=== PATIENT | male | born 1980 | race African-American/Black ===

== ENCOUNTER 2020-06-05 17:45 | Inpatient (IN) | payer BC, OTHER ==
[2020-06-05] MEDS ORDERED: HEPARIN SODIUM,PORCINE 5,000 UNIT/ML 1 ML VIAL IV STA (18:02)
[2020-06-05] MEDS ORDERED: ASPIRIN 81 MG PO STA (18:02)
[2020-06-05] MEDS ORDERED: ATORVASTATIN 80 MG TAB PO STA (18:03)
[2020-06-05] MEDS ORDERED: NALOXONE 0.4 MG/ML 1 ML VIAL IV PRN (18:04)
--- NOTE | 2020-06-05 18:06 | ED ---
General Adult HPI - General Chief complaint: Chest Pain Stated complaint: Chest Pain Time Seen by Provider: 06/05/20 17:58 Source: patient, RN notes reviewed, old records reviewed Mode of arrival: wheelchair Limitations: no limitations - History of Present Illness Initial comments: 19-year-old male history of hypertension, current smoker presenting with anterior chest pain radiating to his neck. His been intermittent over the past 2 or 3 days however 20 minutes prior to arrival pain became more severe. Patient has no known history of coronary artery disease. He denies associated vomiting. He is diaphoretic. - Related Data Home Medications Medication Instructions Recorded Confirmed Hydroxycut Weight Loss Supp 1 cap PO DAILY 06/05/20 06/05/20 amLODIPine [Norvasc] 5 mg PO DAILY 06/05/20 06/05/20 Allergies Allergy/AdvReac Type Severity Reaction Status Date / Time No Known Allergies Allergy Verified 06/05/20 18:19 Review of Systems ROS Statement: Those systems with pertinent positive or pertinent negative responses have been documented in the HPI. ROS Other: All systems not noted in ROS Statement are negative. Past Medical History Past Medical History: No Reported History History of Any Multi-Drug Resistant Organisms: None Reported Past Surgical History: No Surgical Hx Reported Past Psychological History: No Psychological Hx Reported Smoking Status: Current every day smoker, Vaper Past Alcohol Use History: Daily Past Drug Use History: Marijuana General Exam Limitations: no limitations General appearance: alert, in distress Head exam: Present: atraumatic, normocephalic Eye exam: Present: normal appearance, PERRL ENT exam: Present: normal exam Neck exam: Present: normal inspection. Absent: tenderness, meningismus Respiratory exam: Present: normal lung sounds bilaterally. Absent: respiratory distress, wheezes Cardiovascular Exam: Present: regular rate, normal rhythm GI/Abdominal exam: Present: soft. Absent: distended, tenderness, guarding Extremities exam: Present: normal inspection, normal capillary refill, other (Distal pulses, 2+ bilateral posterior tibial, 2+ bilateral radial). Absent: pedal edema Neurological exam: Present: alert, oriented X3, CN II-XII intact. Absent: motor sensory deficit Psychiatric exam: Present: normal affect, normal mood Skin exam: Present: warm, dry, intact, diaphoretic Course Vital Signs 06/05/20 06/05/20 17:46 18:17 Temperature 99.0 F Pulse Rate 55 L 67 Respiratory 20 18 Rate Blood Pressure 160/81 170/94 O2 Sat by Pulse 99 100 Oximetry EKG Findings - EKG Comments: EKG Findings:: EKG: Obtained at 1756, sinus rhythm with ST segment elevation in V1, V2 and V3, there is reciprocal ST segment depression inferiorly. With T- wave inversion. Rate of 61, NM interval 136, QRS duration 106, QTC 420. Repeat EKG at 1759, normal sinus rhythm with ST segment elevation in the precordial leads with reciprocal depression inferiorly and T-wave inversion, rate of 78, NM interval 136, QRS duration 102, QTC 469 Medical Decision Making - Medical Decision Making 39-year-old male with intermittent chest pain, which became severe just prior to arrival. EKG is concerning for ST segment elevated NE, with anterior elevation and reciprocal change. finishing lab technician is activated, I discussed case with Dr. Landeros, and Dr. chadwick he will admit. Laboratory testing has been obtained as well as chest x-ray is results are pending. Patient's given aspirin, heparin, Lipitor the emergency department. Taken to the [facility] for urgent heart cath. - Lab Data Result diagrams: 06/05/20 18:02 Lab Results 06/05/20 06/05/20 Range/Units 18:02 18:02 WBC 10.8 H (3.8-10.6) k/uL RBC 5.03 (4.30-5.90) m/uL Hgb 15.8 (13.0-17.5) gm/dL Hct 48.0 (39.0-53.0) % MCV 95.4 (80.0-100.0) fL MCH 31.4 (25.0-35.0) pg MCHC 32.9 (31.0-37.0) g/dL RDW 12.7 (11.5-15.5) % Plt Count 214 (150-450) k/uL Neutrophils % 62 % Lymphocytes % 27 % Monocytes % 5 % Eosinophils % 3 % Basophils % 1 % Neutrophils # 6.7 (1.3-7.7) k/uL Lymphocytes # 3.0 (1.0-4.8) k/uL Monocytes # 0.5 (0-1.0) k/uL Eosinophils # 0.4 (0-0.7) k/uL Basophils # 0.1 (0-0.2) k/uL PT 9.6 (9.0-12.0) sec INR 0.9 (<1.2) APTT 22.4 (22.0-30.0) sec Critical Care Time Critical Care Time: Yes Total Critical Care Time: 31 Disposition Clinical Impression: ST elevation myocardial infarction (STEMI) Disposition: ADMITTED IP TO THIS [facility] Condition: Serious Is patient prescribed a controlled substance at d/c from ED?: No Referrals: Luca Tian DO [Primary Care Provider] - 1-2 days Decision to Admit Reason: Admit from EC Decision Date: 06/05/20 Decision Time: 18:31
[2020-06-05 18:16] LABS: Basophils # (A) 0.1 k/uL (0-0.2); Basophils % (A) 1 %; Eosinophils # (A) 0.4 k/uL (0-0.7); Eosinophils % (A) 3 %; HGB 15.8 gm/dL (13.0-17.5); Lymphocytes % (A) 27 %; MCH 31.4 pg (25.0-35.0); MCHC 32.9 g/dL (31.0-37.0); MCV 95.4 fL (80.0-100.0); Mean Platelet Volume 8.3; Monocytes # (A) 0.5 k/uL (0-1.0); Monocytes % (A) 5 %; Neutrophils # (A) 6.7 k/uL (1.3-7.7); Neutrophils % (A) 62 %; Platelet Count 214 k/uL (150-450); RBC 5.03 m/uL (4.30-5.90); RDW 12.7 % (11.5-15.5); WBC 10.8 k/uL (3.8-10.6)
[2020-06-05 18:27] LABS: INR 0.9 (<1.2); Partial Thromboplastin Time 22.4 sec (22.0-30.0); Prothrombin Time 9.6 sec (9.0-12.0)
[2020-06-05 18:32] LABS: Albumin 3.9 g/dL (3.5-5.0); Calcium 9.1 mg/dL (8.4-10.2); Magnesium 2.3 mg/dL (1.6-2.3); Potassium 4.1 mmol/L (3.5-5.1); Total Bilirubin 0.9 mg/dL (0.2-1.3); Total Protein 6.1 g/dL (6.3-8.2)
[2020-06-05] MEDS ORDERED: LIDOCAINE 1% INJ 10MG/ML (20 ML MDV) ONE (18:41)
[2020-06-05] MEDS ORDERED: fentaNYL (PF) 50 MCG/ML 2 ML AMP ONE (18:41)
[2020-06-05] MEDS ORDERED: VERAPAMIL 2.5 MG/ML 2 ML AMP ONE (18:41)
[2020-06-05] MEDS ORDERED: IV FLUID CONTINUATION 1,000 ML IV ONE (18:43)
[2020-06-05] MEDS ORDERED: fentaNYL (PF) 50 MCG/ML 2 ML AMP IV ONE (18:45)
[2020-06-05] MEDS ORDERED: LIDOCAINE 1% INJ 10MG/ML (20 ML MDV) SQ ONE (18:47)
[2020-06-05] MEDS ORDERED: VERAPAMIL SYRINGE (5 MG/10 ML) INTRAARTER ONE (18:50)
[2020-06-05] MEDS ORDERED: BIVALIRUDIN 250 MG in SODIUM CHLORIDE 0.9% 50 ML IV ONE (18:50)
[2020-06-05] MEDS ORDERED: BIVALIRUDIN BOLUS 250 MG/50 ML IV ONE (18:50)
[2020-06-05 18:51] LABS: Creatine Kinase MB 5.2 ng/mL (0.0-2.4)
[2020-06-05] MEDS ORDERED: PRASUGREL 10 MG TAB ONE ×2 (18:59)
--- NOTE | 2020-06-05 19:00 | P.CRDCN ---
History of Present Illness History of present illness: This is Dr. Landeros dictating a consult on this patient The patient was interviewed and examined IMPRESSION / ASSESSMENT: Midsternal chest discomfort starting 20 minutes prior to arrival severe. No dizziness no nausea no other symptoms Abnormal ST segments with ST elevation in V1 to V3, T-wave inversion inferior leads and V6, asymmetric Recurrent chest discomfort for the last 2 days worse 20 minutes prior to admission History of long-standing hypertension, uncontrolled Noncompliance of medications line current smoker Nondiabetic Elevated CPK, troponins pending ECG very suggestive of left ventricular hypertrophy PLAN: In view of the abnormal ECG and worrisome chest discomfort midsternal, proceed with coronary angiography. Discussed with the patient's . Discussed Dr. Jr flores Lipid panel Hypertension management Low salt diet Smoking cessation HPI Patient has been experiencing recurrent chest discomfort for the last 2 days. He did not tell his anything but 20 minutes prior to arrival he started having severe midsternal chest discomfort once again, nonradiating. The pain was so severe that he came to the hospital. No other associated symptoms No dizziness lightheadedness no loss of consciousness He does have hypertension but he's been taking his 's medications reviewed he is fairly noncompliant with her medications He does smoke He is a nondiabetic ROS: No fever chills or rigors, no cough, phlegm or expectoration, no nausea, vomiting or diarrhea, no hematuria, dysuria, no musculoskeletal complaints, no strokes or seizures, no skin lesions. EXAMINATION: Heart rate in the 1560s, temperature 90.9F, blood pressure 160-170 mmHg systolic and diastolics between 80-90 mmHg REVIEW OF LABS, ECG & MEDICAL DATA White count 10.8, hemoglobin 15.8 Sodium 137 potassium 4.1 BUN 12 creatinine 1.38 CPK 466 Past Medical History Past Medical History: No Reported History History of Any Multi-Drug Resistant Organisms: None Reported Past Surgical History: No Surgical Hx Reported Past Psychological History: No Psychological Hx Reported Smoking Status: Current every day smoker, Vaper Past Alcohol Use History: Daily Past Drug Use History: Marijuana Medications and Allergies Home Medications Medication Instructions Recorded Confirmed Type Hydroxycut Weight Loss Supp 1 cap PO DAILY 06/05/20 06/05/20 History amLODIPine [Norvasc] 5 mg PO DAILY 06/05/20 06/05/20 History Allergies Allergy/AdvReac Type Severity Reaction Status Date / Time No Known Allergies Allergy Verified 06/05/20 18:19 Physical Exam Vitals: Vital Signs Temp Pulse Resp BP Pulse Ox 06/05/20 18:17 67 18 170/94 100 06/05/20 17:46 99.0 F 55 L 20 160/81 99 Intake and Output 06/05/20 06/05/20 06/05/20 06:59 14:59 22:59 Other: Weight 102.058 kg Results 06/05/20 18:02 06/05/20 18:02 Cardiac Enzymes 06/05/20 Range/Units 18:02 AST 37 (17-59) U/L Coagulation 06/05/20 Range/Units 18:02 PT 9.6 (9.0-12.0) sec APTT 22.4 (22.0-30.0) sec CBC 06/05/20 Range/Units 18:02 WBC 10.8 H (3.8-10.6) k/uL RBC 5.03 (4.30-5.90) m/uL Hgb 15.8 (13.0-17.5) gm/dL Hct 48.0 (39.0-53.0) % Plt Count 214 (150-450) k/uL Comprehensive Metabolic Panel 06/05/20 Range/Units 18:02 Sodium 137 (137-145) mmol/L Potassium 4.1 (3.5-5.1) mmol/L Chloride 106 (98-107) mmol/L Carbon Dioxide 26 (22-30) mmol/L BUN 12 (9-20) mg/dL Creatinine 1.38 H (0.66-1.25) mg/dL Glucose 92 (74-99) mg/dL Calcium 9.1 (8.4-10.2) mg/dL AST 37 (17-59) U/L ALT 29 (4-49) U/L Alkaline Phosphatase 52 (38-126) U/L Total Protein 6.1 L (6.3-8.2) g/dL Albumin 3.9 (3.5-5.0) g/dL Current Medications Generic Name Dose Route Start Last Admin Trade Name Freq PRN Reason Stop Dose Admin Naloxone HCl 0.2 mg 06/05/20 18:04 Narcan IV Q2M PRN Opioid Reversal Intake and Output 06/05/20 06/05/20 06/05/20 06:59 14:59 22:59 Other: Weight 102.058 kg Patient Weight 06/06/20 06:59 Weight 102.058 kg 06/05/20 18:02 06/05/20 18:02
[2020-06-05 19:02] LABS: Troponin I 0.377 ng/mL (0.000-0.034)
[2020-06-05] MEDS ORDERED: PRASUGREL 10 MG TAB PO ONE (19:03)
[2020-06-05] MEDS ORDERED: NITROGLYCERIN 1000MCG/10ML SYRINGE INTRACORON ONE ×2 (19:03→19:14)
[2020-06-05] MEDS ORDERED: IOPAMIDOL-370 100ML BTL INJ ONE ×2 (19:05→19:22)
--- NOTE | 2020-06-05 19:08 | XR ---
EXAMINATION: XR chest 1V portable DATE AND TIME: 06/05/2020 6:09 PM CLINICAL INDICATION: PHH; chest pain, STEMI TECHNIQUE: AP upright portable COMPARISON: None FINDINGS: The lungs are clear. The pleural spaces are negative. The cardiac silhouette is not enlarged. The remainder of the mediastinal silhouette is unremarkable. The skeletal structures and soft tissues are negative for acute findings. IMPRESSION: NO ACUTE PROCESS.
[2020-06-05] MEDS ORDERED: RX INFO: IV CONTRAST WAS GIVEN 1 EACH MISC MISCELLANE PRN (19:40)
[2020-06-05] MEDS ORDERED: ZOLPIDEM 5 MG TAB PO PRN (19:40)
[2020-06-05] MEDS ORDERED: MAG HYDROX/AL HYDROX/SIMETH 30 ML CUP PO PRN (19:40)
[2020-06-05] MEDS ORDERED: ATROPINE SULFATE 0.1 MG/ML 10ML SYRINGE IV PRN (19:40)
[2020-06-05] MEDS ORDERED: NITROGLYCERIN SL TABS 0.4 MG TAB SUBLINGUAL PRN (19:40)
[2020-06-05] MEDS ORDERED: SODIUM CHLORIDE 0.9% 1,000 ML IV SCH (19:45)
[2020-06-05 20:01] LABS: Glucose,Whole Blood 93 mg/dL (75-99)
[2020-06-05] MEDS: ATORVASTATIN 80 MG TAB PO SCH (21:10)
[2020-06-05] MEDS: METOPROLOL TARTRATE 25 MG TAB PO SCH (21:10)
[2020-06-05] MEDS: lisinopriL 5 MG TAB PO SCH (21:11)
--- NOTE | 2020-06-05 21:50 | CC ---
CARDIAC CATHETERIZATION REPORT Mr. Lundy is a 39-year-old male with known history of chronic tobacco use and hypertension who presented with symptoms of chest discomfort on and off for the last 2 days. He was evaluated by Dr. Landeros. His EKG showed evidence of left ventricular hypertrophy as well as ST-segment elevation anteriorly. In view of that, recommendation made regarding cardiac catheterization. The procedures, risks, and complications were discussed with the patient who is in full understanding and agreement. PROCEDURE DETAILS: Patient was brought to [facility] in a fasting state after receiving fentanyl and Benadryl and achieving moderate conscious sedated state. Using Xylocaine anesthesia and Seldinger technique, a 6-Azerbaijani sheath was introduced in the right radial artery. Selective right and left coronary angiography performed using 5-Azerbaijani 3 and half bend right Micki and 6-[place]zerbaij[place] FL 3.5 guiding catheter. Images of the coronary arteries including hemiaxial views were obtained. Subsequently angioplasty and stenting was performed. Following that, the left guide catheter was used to cross the aortic valve and pressures were calculated. Following that, catheter and sheath were removed. Hemostasis was obtained with deployment of a TR band. There was no immediate complication. Patient is returned to his room in stable condition. Of note, the patient had received intra-arterial verapamil. There was no immediate complication. FINDINGS: LEFT MAIN: This is a short size vessel bifurcating into left circumflex, left anterior descending coronary artery, left main coronary artery has no evidence of high-grade stenosis. LEFT ANTERIOR DESCENDING ARTERY: This is a large-sized vessel reaching toward the apex with a wraparound apex segment giving rise to a 1 diagonal branch of moderate caliber. The diagonal branch has a 40% to 50% plaque. The rest of the vessel has no high-grade stenosis. LEFT CIRCUMFLEX: This is a nondominant vessel, large in caliber, giving rise to 3 obtuse marginal branch the left circumflex proximally prior to the takeoff of the first obtuse marginal branch has a 90 of 95% stenosis. The rest of the vessel has no high- grade stenosis. RIGHT CORONARY ARTERY: This is a large dominant vessel bifurcating distally PDA and posterolateral segment and branches. The right coronary artery as well as branches have no evidence of obstructive disease. LEFT VENTRICULOGRAM: Left ventriculogram was not performed. HEMODYNAMICS: There was no gradient across the aortic valve. The left ventricle end-diastolic pressure is 12-14 mmHg. CONCLUSION: 1. Critical stenosis in the proximal left circumflex. 2. Mild to moderate disease in the 1st diagonal branch. RECOMMENDATIONS: In view of finding anatomy, I recommend to proceed with angioplasty and stenting of the left anterior descending artery. The procedures, risks, and complications were discussed with the patient who is in full understanding and agreement. MMEMILYL / RUBENN: [id number] /
--- NOTE | 2020-06-05 22:05 | LTR ---
DATE OF SERVICE: 06/05/[address] Tian: I had the pleasure of performing cardiac catheterization, coronary angioplasty and stenting on Mr. Lundy at [facility] on June 05 and a full copy of procedure note will be forwarded to you. In brief, he was found to have critical stenosis involving the proximal left circumflex and underwent successful stenting of that vessel. I am hopeful that this procedure will stabilize his status and I would recommend continuing dual antiplatelet treatments without any interruption for at least 1 year. Thank you again for allowing me to participate in his care. Please feel free to call for any questions. Sincerely yours, MMODL / IJN: [id number] /
--- NOTE | 2020-06-05 22:05 | CC ---
CARDIAC CATHETERIZATION REPORT Mr. Lundy is a 39-year-old male with a history of hypertension and chronic tobacco use, who presented with symptoms of chest discomfort and EKG changes. He underwent cardiac catheterization was found to have a critical stenosis involving the proximal left circumflex. In view of that, recommendation made regarding angioplasty and stenting. The procedures, risks, and complication were discussed with the patient who is in full understanding and agreement. PROCEDURE DETAILS: Using the 6-[place] FL 3.5 guiding catheter a 0.014 balanced medium weight J-wire was advanced across the lesion positioned distal left circumflex. Following that, a 2.5 x 12 mm Trek balloon was advanced and one inflation at 8 atmospheres was done. Following that, the balloon was removed and a 3.5 x 18 mm Xience Jessica stent was deployed, it was dilated at 16 atmospheres. After that, the balloon was removed and the wire was reintroduced in the first obtuse marginal branch and a 2.5 x 12 mm Trek balloon was advanced and one inflation at 8 atmospheres was done. Following that, the balloon was removed and the wire was reintroduced in the distal left circumflex and a 4.0 x 8 mm NC Trek balloon was advanced and two inflations at a maximum of 12 atmospheres was done. After the last inflation, after appropriate wait, the balloon and the guide wire withdrawn back in the guiding catheter. Images were obtained and repeated. Those images reveal stable successful stenting. Following that, left ventricular end- diastolic pressure was calculated. Following that, catheter and sheath were removed. Hemostasis was obtained with deployment of a TR band. There was no immediate complication. Patient is returned to his room in stable condition. Of note, the patient received Angiomax per protocol as well as oral loading dose of Effient. He had chest discomfort and mild EKG changes with the inflation that resolved at the end of the procedure. RESULTS: Successful stenting of the proximal left circumflex with reduction of stenosis from 95% to 0%. RECOMMENDATIONS: Patient will be continued on aspirin, Effient, beta billy, BENNY inhibitor, statin. The importance of dual antiplatelet treatment were discussed with the patient and his family and they are in full understanding and agreement. Duration of sedation is 40 minutes. MMODL / IJN: [id number] /
[2020-06-06 05:01] LABS: Basophils # (A) 0.1 k/uL (0-0.2); Basophils % (A) 1 %; Eosinophils # (A) 0.4 k/uL (0-0.7); Eosinophils % (A) 5 %; HCT 46.7 % (39.0-53.0); HGB 15.4 gm/dL (13.0-17.5); Lymphocytes # (A) 2.3 k/uL (1.0-4.8); Lymphocytes % (A) 25 %; MCH 32.1 pg (25.0-35.0); MCV 97.3 fL (80.0-100.0); Mean Platelet Volume 8.3; Monocytes # (A) 0.4 k/uL (0-1.0); Monocytes % (A) 5 %; Neutrophils % (A) 65 %; Platelet Count 187 k/uL (150-450); RDW 12.8 % (11.5-15.5); WBC 9.2 k/uL (3.8-10.6)
[2020-06-06 05:14] LABS: African American GFR (CKD) >90 (>60 ml/min/1.73 sqM); Anion Gap 3 mmol/L; Blood Urea Nitrogen 10 mg/dL (9-20); Calcium 8.6 mg/dL (8.4-10.2); Carbon Dioxide 24 mmol/L (22-30); Chloride 112 mmol/L (98-107); Glucose 108 mg/dL (74-99); Non-African American GFR(CKD) 84 (>60 ml/min/1.73 sqM); Potassium 4.4 mmol/L (3.5-5.1); Sodium 139 mmol/L (137-145)
[2020-06-06 05:15] LABS: Cholesterol 187 mg/dL (<200); HDL Cholesterol 40 mg/dL (40-60); LDL Cholesterol,Calculated 125 mg/dL (0-99); Triglycerides 110 mg/dL (<150)
--- NOTE | 2020-06-06 07:29 | P.PN ---
Subjective Progress Note Date: 06/06/20 Principal diagnosis: Acute coronary syndrome This is a pleasant 39-year-old gentleman with history of smoking and hypertension and dyslipidemia presented to the emergency department with a chest discomfort. He underwent an emergent heart catheterization and was found to have critical disease involving the LCx. He underwent successful stenting of the LCx with an excellent angiographic results. The patient was seen today, JUNE 06. He is asymptomatic from a cardiovascular standpoint overview. Hemodynamically he is stable was marginally low blood pressure. He is on maximize medical treatment including dual antiplatelet therapy along with metoprolol, lisinopril, and high intensity statin. An echocardiogram was ordered and will follow-up with that. I would continue the monitoring the patient for additional 24 hours and probably transfer the patient out of the ICU tomorrow Objective - Vital Signs Vital signs: Vital Signs Temp 97.7 F 06/06/20 07:00 Pulse 67 06/06/20 07:00 Resp 26 H 06/06/20 07:00 BP 134/82 06/06/20 07:00 Pulse Ox 100 06/06/20 07:00 Intake & Output 06/05/20 06/06/20 06/06/20 18:59 06:59 18:59 Intake Total 230 1540 220 Output Total 2560 405 Balance 230 -1020 -185 Weight 102.058 kg 104.6 kg Intake: IV 230 1200 100 Sodium Chloride 0.9% 1, 1200 100 000 ml @ 100 mls/hr IV . Q10H BETZY Rx#:[id number] Oral 340 120 Output: Urine 2560 405 Other: # Voids 1 1 - Constitutional General appearance: Present: no acute distress - Respiratory Respiratory: bilateral: CTA - Cardiovascular Rhythm: regular Heart sounds: normal: S1, S2 - Labs CBC & Chem 7: 06/06/20 04:50 06/06/20 04:50 Labs: Abnormal Lab Results - Last 24 Hours (Table) 06/05/20 06/05/20 06/05/20 Range/Units 18:02 18:02 18:02 WBC 10.8 H (3.8-10.6) k/uL Chloride (98-107) mmol/L Creatinine 1.38 H (0.66-1.25) mg/dL Glucose (74-99) mg/dL Total Creatine Kinase 466 H (55-170) U/L CK-MB (CK-2) 5.2 H (0.0-2.4) ng/mL Troponin I 0.377 H* (0.000-0.034) ng/mL Total Protein 6.1 L (6.3-8.2) g/dL LDL Cholesterol, Calc (0-99) mg/dL 06/05/20 06/06/20 06/06/20 Range/Units 21:22 00:18 04:50 WBC (3.8-10.6) k/uL Chloride (98-107) mmol/L Creatinine (0.66-1.25) mg/dL Glucose (74-99) mg/dL Total Creatine Kinase (55-170) U/L CK-MB (CK-2) (0.0-2.4) ng/mL Troponin I 1.420 H* 2.530 H* (0.000-0.034) ng/mL Total Protein (6.3-8.2) g/dL LDL Cholesterol, Calc 125 H (0-99) mg/dL 06/06/20 Range/Units 04:50 WBC (3.8-10.6) k/uL Chloride 112 H (98-107) mmol/L Creatinine (0.66-1.25) mg/dL Glucose 108 H (74-99) mg/dL Total Creatine Kinase (55-170) U/L CK-MB (CK-2) (0.0-2.4) ng/mL Troponin I (0.000-0.034) ng/mL Total Protein (6.3-8.2) g/dL LDL Cholesterol, Calc (0-99) mg/dL Assessment and Plan Assessment: Assessment #1 acute coronary syndrome #2 CAD and status post a stenting of the LCx #3 significant history of smoking #4 hypertension #5 dyslipidemia Plan #1 continue the current medical regimen including dual antiplatelet therapy and high intensity statin #2 continue anti-ischemic medication was metoprolol and lisinopril #3 follow-up on the echocardiogram
[2020-06-06] MEDS: ASPIRIN 81 MG PO SCH (08:31)
[2020-06-06] MEDS: lisinopriL 5 MG TAB PO SCH ×2 (08:31→20:22)
[2020-06-06] MEDS: PRASUGREL 10 MG TAB PO SCH (08:31)
[2020-06-06] MEDS: METOPROLOL TARTRATE 25 MG TAB PO SCH ×2 (08:32→23:00)
--- NOTE | 2020-06-06 10:48 | ECHOF ---
Referral Reason:nc MEASUREMENTS -------- HEIGHT: 167.6 cm WEIGHT: 104.3 kg BP: 131/76 RVIDd: 3.1 cm (< 3.3) IVSd: 1.2 cm (0.6 - 1.1) LVIDd: 4.5 cm (3.9 - 5.3) LVPWd: 1.2 cm (0.6 - 1.1) IVSs: 1.9 cm LVIDs: 2.9 cm LVPWs: 1.7 cm LA Diam: 3.3 cm (2.7 - 3.8) LAESV Index (A-L): 22.61 ml/m Ao Diam: 3.4 cm (2.0 - 3.7) AV Cusp: 2.1 cm (1.5 - 2.6) MV EXCURSION: 14.577 mm (> 18.000) MV EF SLOPE: 83 mm/s (70 - 150) EPSS: 0.7 cm MV E Sin: 0.94 m/s MV DecT: 227 ms MV A Sin: 0.69 m/s MV E/A Ratio: 1.36 RAP: 5.00 mmHg RVSP: 27.81 mmHg FINDINGS -------- Sinus rhythm. This was a technically good study. The left ventricular size is normal. There is borderline concentric left ventricular hypertrophy. Overall left ventricular systolic function is normal with, an EF between 60 - 65 %. The right ventricle is normal in size. Normal LA size by volume 22+/-6 ml/m2. The right atrium is normal in size. Interatrial and interventricular septum intact. Aortic valve is trileaflet and is mildly thickened. There is trace to mild mitral regurgitation. Mild tricuspid regurgitation present. Right ventricular systolic pressure is normal at < 35 mmHg. There is no pulmonic regurgitation present. The aortic root size is normal. Normal inferior vena cava with normal inspiratory collapse consistent with estimated right atrial pre ssure of 5 mmHg. There is no pericardial effusion. CONCLUSIONS -------- 1. The left ventricular size is normal. 2. There is borderline concentric left ventricular hypertrophy. 3. Overall left ventricular systolic function is normal with, an EF between 60 - 65 %. 4. Aortic valve is trileaflet and is mildly thickened. 5. There is trace to mild mitral regurgitation. 6. Mild tricuspid regurgitation present. 7. There is no pericardial effusion. GARAGEMAN: Naila Dias RDCS
[2020-06-06 11:29] VITALS: BMI 37.2
--- NOTE | 2020-06-06 19:34 | P.HPIM ---
History of Present Illness H&P Date: 06/06/20 Chief Complaint: Chest pain History of presenting complaint: This is a 39-year-old patient of Dr. Tian. Chronic stable medical conditions include hypertension. 0.2 days patient been having sharp pain in the middle of the upper back despite 80 off and on. Not related to exertion. Also short of breath. Some nausea. The pain did go up to his throat. Also short of breath. Tired rundown. Symptoms became progressively worse yesterday. Decided to come in. Patient's troponins were positive. Presented with ST elevation in anterior leads. Cardiac catheterization was done by Dr. rutledge-proximal left circumflex lesion 95% reduced to 0%. This morning no chest pain or short of breath. In the ICU. Review of systems: GEN.: Tired EYES: None HEENT: None NECK: None RESPIRATORY: As above CARDIOVASCULAR: As above GASTROINTESTINAL: None GENITOURINARY: None MUSCULOSKELETAL: None LYMPHATICS: None HEMATOLOGICAL: None PSYCHIATRY: None NEUROLOGICAL: None Past medical history to include: Hypertension Social history: Visit his girlfriend. Works in the shop. Smoking a pack a day for about 26 years. Does vapor marijuana. Physical examination: VITAL SIGNS: 97.8, 67, 20, 141/91, 96% room air GENERAL: BMI 37.2, sitting up in bed, bit tired. EYES: Pupils equal. Conjunctiva normal. HEENT: External appearance of nose and ears normal, oral cavity grossly normal. NECK: JVD not raised; masses not palpable. HEART: First and second heart sounds are normal; no edema. LUNGS: Respiratory rate normal; clear to auscultation. ABDOMEN: Soft, nontender, liver spleen not palpable, no masses palpable. PSYCH: Alert and oriented x3; mood and affect normal. NEUROLOGICAL: Cranial nerves grossly intact; no facial asymmetry, power and sensation grossly intact. LYMPHATICS: No lymph nodes palpable in the axilla and neck INVESTIGATIONS, reviewed in the clinical context: White count 10.8 hemoglobin 15.8 platelets 214 potassium 4.1 creatinine 1.3 8 repeat 1.09 Troponin I 0.377, 1.4 2.5 LDL [address] elevation in anterior leads-personally reviewed by me Chest x-ray film personally reviewed by me-lung milligan clear Assessment: -Acute ST elevation anterior wall [place] -Emergent cardiac catheterization with stenting to circumflex -Essential hypertension -Hyperlipidemia -Chronic nicotine dependence patient cigarette smoker -Marijuana use Plan: Patient ICU. Current medications include aspirin, Lipitor, Zestril, Lopressor, Effient. Care was discussed with the patient. Question answered Smoke cessation counseling: This was done with the patient. Nicotine patch is being given. More than 3 minutes was spent for this Past Medical History Past Medical History: No Reported History History of Any Multi-Drug Resistant Organisms: None Reported Past Surgical History: No Surgical Hx Reported Past Psychological History: No Psychological Hx Reported Smoking Status: Current every day smoker, Vaper Past Alcohol Use History: Daily Past Drug Use History: Marijuana - Past Family History Mother Family Medical History: Renal Disease Additional Family Medical History / Comment(s): Stroke Father Family Medical History: Hypertension, Myocardial Infarction ([place]) Medications and Allergies Home Medications Medication Instructions Recorded Confirmed Type Hydroxycut Weight Loss Supp 1 cap PO DAILY 06/05/20 06/05/20 History amLODIPine [Norvasc] 5 mg PO DAILY 06/05/20 06/05/20 History Allergies Allergy/AdvReac Type Severity Reaction Status Date / Time No Known Allergies Allergy Verified 06/05/20 18:19 Physical Exam Vitals: Vital Signs Temp Pulse Resp BP Pulse Ox 06/06/20 12:00 97.5 F L 48 L 16 123/83 98 06/06/20 11:00 56 L 12 117/68 97 06/06/20 10:00 49 L 16 132/69 98 06/06/20 09:00 51 L 18 133/80 96 06/06/20 08:00 97.9 F 49 L 10 L 143/70 97 06/06/20 07:00 97.7 F 67 26 H 134/82 100 06/06/20 06:00 58 L 14 131/76 95 06/06/20 05:00 52 L 23 137/96 95 06/06/20 04:00 97.8 F 67 20 141/91 96 06/06/20 03:00 64 14 129/69 95 06/06/20 02:00 77 13 132/79 94 L 06/06/20 01:00 60 24 142/93 96 06/06/20 00:00 97.8 F 57 L 13 125/88 96 06/05/20 23:10 55 L 9 L 125/88 97 06/05/20 23:00 54 L 13 123/102 96 06/05/20 22:00 59 L 15 151/104 98 06/05/20 21:15 56 L 25 H 134/86 06/05/20 21:00 60 18 143/91 98 06/05/20 20:45 61 19 153/96 97 06/05/20 20:30 63 13 132/85 98 06/05/20 20:15 65 10 L 139/102 97 06/05/20 20:00 98.3 F 65 15 149/96 97 06/05/20 19:51 68 13 06/05/20 18:17 67 18 170/94 100 06/05/20 17:46 99.0 F 55 L 20 160/81 99 Intake and Output 06/05/20 06/06/20 06/06/20 22:59 06:59 14:59 Intake Total 630 1152 223 Output Total 550 2009 405 Balance 80 -753 -182 Intake: IV 630 812 103 ART Line Flush .9 NaCl 12 3 Sodium Chloride 0.9% 1, 400 800 100 000 ml @ 100 mls/hr IV . Q10H [facility] Rx#:[id number] Oral 340 120 Output: Urine 550 2009 405 Other: Voiding Method Urinal # Voids 0 1 0 Weight 102.058 kg 104.6 kg 104.6 kg Results CBC & Chem 7: 06/06/20 04:50 06/06/20 04:50 Labs: Abnormal Lab Results - Last 24 Hours (Table) 06/05/20 06/05/20 06/05/20 Range/Units 18:02 18:02 18:02 WBC 10.8 H (3.8-10.6) k/uL Chloride (98-107) mmol/L Creatinine 1.38 H (0.66-1.25) mg/dL Glucose (74-99) mg/dL Total Creatine Kinase 466 H (55-170) U/L CK-MB (CK-2) 5.2 H (0.0-2.4) ng/mL Troponin I 0.377 H* (0.000-0.034) ng/mL Total Protein 6.1 L (6.3-8.2) g/dL LDL Cholesterol, Calc (0-99) mg/dL 06/05/20 06/06/20 06/06/20 Range/Units 21:22 00:18 04:50 WBC (3.8-10.6) k/uL Chloride (98-107) mmol/L Creatinine (0.66-1.25) mg/dL Glucose (74-99) mg/dL Total Creatine Kinase (55-170) U/L CK-MB (CK-2) (0.0-2.4) ng/mL Troponin I 1.420 H* 2.530 H* (0.000-0.034) ng/mL Total Protein (6.3-8.2) g/dL LDL Cholesterol, Calc 125 H (0-99) mg/dL 06/06/20 Range/Units 04:50 WBC (3.8-10.6) k/uL Chloride 112 H (98-107) mmol/L Creatinine (0.66-1.25) mg/dL Glucose 108 H (74-99) mg/dL Total Creatine Kinase (55-170) U/L CK-MB (CK-2) (0.0-2.4) ng/mL Troponin I (0.000-0.034) ng/mL Total Protein (6.3-8.2) g/dL LDL Cholesterol, Calc (0-99) mg/dL Thrombosis Risk Factor Assmnt - Choose All That Apply Any of the Below Risk Factors Present?: Yes Each Factor Represents 1 point: Acute GA, Age 41-60 years Other Risk Factors: No Other congenital or acquired thrombophilia - If yes, enter type in comment: No Thrombosis Risk Factor Assessment Total Risk Factor Score: 2 Thrombosis Risk Factor Assessment Level: Low Risk
[2020-06-06] MEDS: ATORVASTATIN 80 MG TAB PO SCH (20:22)
[2020-06-07 05:04] LABS: Basophils # (A) 0.1 k/uL (0-0.2); Basophils % (A) 1 %; Eosinophils # (A) 0.2 k/uL (0-0.7); Eosinophils % (A) 2 %; HCT 48.8 % (39.0-53.0); HGB 15.8 gm/dL (13.0-17.5); Lymphocytes # (A) 1.9 k/uL (1.0-4.8); Lymphocytes % (A) 19 %; MCH 31.1 pg (25.0-35.0); MCHC 32.3 g/dL (31.0-37.0); MCV 96.4 fL (80.0-100.0); Mean Platelet Volume 8.4; Monocytes # (A) 0.5 k/uL (0-1.0); Monocytes % (A) 5 %; Neutrophils # (A) 7.2 k/uL (1.3-7.7); Neutrophils % (A) 72 %; Platelet Count 204 k/uL (150-450); RBC 5.07 m/uL (4.30-5.90); RDW 12.7 % (11.5-15.5)
[2020-06-07 05:13] LABS: African American GFR (CKD) >90 (>60 ml/min/1.73 sqM); Anion Gap 3 mmol/L; Blood Urea Nitrogen 9 mg/dL (9-20); Calcium 8.9 mg/dL (8.4-10.2); Carbon Dioxide 24 mmol/L (22-30); Chloride 109 mmol/L (98-107); Glucose 111 mg/dL (74-99); Non-African American GFR(CKD) >90 (>60 ml/min/1.73 sqM); Potassium 4.2 mmol/L (3.5-5.1); Sodium 136 mmol/L (137-145)
--- NOTE | 2020-06-07 06:25 | P.PN ---
Subjective Progress Note Date: 06/07/20 Principal diagnosis: Acute coronary syndrome This is a pleasant 39-year-old gentleman with history of smoking and hypertension and dyslipidemia presented to the emergency department with a chest discomfort. He underwent an emergent heart catheterization and was found to have critical disease involving the LCx. He underwent successful stenting of the LCx with an excellent angiographic results. The patient was seen today June [id number]. He remains asymptomatic from a cardiovascular standpoint overview. Hemodynamically he is a stable was marginally low blood pressure and for that reason I'm decreasing dose of metoprolol to 12.5 mg by mouth twice a day. Otherwise he is on dual antiplatelet therapy and high intensity statin. The echo revealed normal LV function. From the cardiac vascular standpoint of view, the patient can be transferred out of the ICU preparing him to be discharged home tomorrow. Objective - Vital Signs Vital signs: Vital Signs Temp 98.3 F 06/07/20 04:00 Pulse 64 06/07/20 06:00 Resp 15 06/07/20 06:00 BP 92/50 06/07/20 06:00 Pulse Ox 96 06/07/20 06:00 Intake & Output 06/06/20 06/06/20 06/07/20 06:59 18:59 06:59 Intake Total 1552 223 Output Total 2560 1255 Balance -1008 -1032 Weight 104.6 kg 104.6 kg Intake: IV 1212 103 ART Line Flush .9 NaCl 12 3 Sodium Chloride 0.9% 1, 1200 100 000 ml @ 100 mls/hr IV . Q10H [facility] Rx#:[id number] Oral 340 120 Output: Urine 2560 1255 Other: Voiding Method Urinal # Voids 1 1 0 # Bowel Movements 1 - Constitutional General appearance: Present: no acute distress - Respiratory Respiratory: bilateral: CTA - Cardiovascular Rhythm: regular Heart sounds: normal: S1, S2 - Labs CBC & Chem 7: 06/07/20 04:40 06/07/20 04:40 Labs: Abnormal Lab Results - Last 24 Hours (Table) 06/07/20 Range/Units 04:40 Sodium 136 L (137-145) mmol/L Chloride 109 H (98-107) mmol/L Glucose 111 H (74-99) mg/dL Assessment and Plan Assessment: Assessment #1 acute coronary syndrome #2 CAD and status post a stenting of the LCx #3 significant history of smoking #4 hypertension #5 dyslipidemia Plan #1 continue the current medical regimen including dual antiplatelet therapy and high intensity statin #2 decrease the dose of metoprolol #3 transfer out of the ICU
[2020-06-07] MEDS: lisinopriL 5 MG TAB PO SCH ×2 (09:14→20:19)
[2020-06-07] MEDS: PRASUGREL 10 MG TAB PO SCH (09:14)
[2020-06-07] MEDS: ASPIRIN 81 MG PO SCH (09:14)
[2020-06-07] MEDS: METOPROLOL TARTRATE 12.5 MG TAB PO SCH ×2 (12:17→20:19)
[2020-06-07 19:57] VITALS: RESP 18
[2020-06-07] MEDS: ATORVASTATIN 80 MG TAB PO SCH (20:19)
--- NOTE | 2020-06-07 21:03 | P.PN ---
Progress Note - Text Progress Note Date: 06/07/20 Chief Complaint: Chest pain History of presenting complaint: This is a 39-year-old patient of Dr. Tian. Chronic stable medical conditions include hypertension. 0.2 days patient been having sharp pain in the middle of the upper back despite 80 off and on. Not related to exertion. Also short of breath. Some nausea. The pain did go up to his throat. Also short of breath. Tired rundown. Symptoms became progressively worse yesterday. Decided to come in. Patient's troponins were positive. Presented with ST elevation in anterior leads. Cardiac catheterization was done by Dr. rutledge-proximal left circumflex lesion 95% reduced to 0%. Today-in the ICU. No chest pain or shortness of breath. Eating. Has been out of bed. Girlfriend present. Review of systems: Was done for constitutional, cardiovascular, GI, pulmonary. relevant finding as above Active Medications Al Hydroxide/Mg Hydroxide (Maalox) 30 ml PO Q4HR PRN PRN Reason: Heartburn Aspirin (Aspirin) 81 mg PO DAILY [facility] Last Admin: 06/07/20 09:14 Dose: 81 mg Documented by: Atorvastatin Calcium (Lipitor) 80 mg PO HS [facility] Last Admin: 06/07/20 20:19 Dose: 80 mg Documented by: Atropine Sulfate (Atropine) 0.5 mg IV ONCE PRN PRN Reason: Symptomatic Bradycardia Lisinopril (Zestril) 5 mg PO BID [facility] Last Admin: 06/07/20 20:19 Dose: 5 mg Documented by: Metoprolol Tartrate (Lopressor) 12.5 mg PO BID [facility] Last Admin: 06/07/20 20:19 Dose: 12.5 mg Documented by: Naloxone HCl (Narcan) 0.2 mg IV Q2M PRN PRN Reason: Opioid Reversal Nitroglycerin (Nitrostat) 0.4 mg SUBLINGUAL Q5M PRN PRN Reason: Chest Pain Prasugrel (Effient) 10 mg PO DAILY [facility] Last Admin: 06/07/20 09:14 Dose: 10 mg Documented by: Zolpidem Tartrate (Ambien) 5 mg PO HS PRN PRN Reason: Insomnia doug. Physical examination: VITAL signs-98.1, 54, 16, 131/79, 97% on room air GENERAL: sitting up in bed, awake EYES: Pupils equal. Conjunctiva normal. HEENT: External appearance of nose and ears normal, oral cavity grossly normal. NECK: JVD not raised; masses not palpable. HEART: First and second heart sounds are normal; no edema. LUNGS: Respiratory rate normal; clear to auscultation. ABDOMEN: Soft, nontender, liver spleen not palpable, no masses palpable. PSYCH: Alert and oriented x3; mood and affect normal. INVESTIGATIONS, reviewed in the clinical context: White count and hemoglobin 15.8 potassium 4.2 crit 1.02 Previous testing White count 10.8 hemoglobin 15.8 platelets 214 potassium 4.1 creatinine 1.3 8 repeat 1.09 Troponin I 0.377, 1.4 2.5 LDL [address] elevation in anterior leads-personally reviewed by me Chest x-ray film personally reviewed by me-lung milligan clear Assessment: -Acute ST elevation anterior wall [place] -Emergent cardiac catheterization with stenting to circumflex -Essential hypertension -Hyperlipidemia -Chronic nicotine dependence patient cigarette smoker -Marijuana use Plan: Discussed with the patient. Encouraged to be out of bed. Medications to continue. Hopefully discharge in 24 hours.
--- NOTE | 2020-06-08 08:02 | P.PN ---
Subjective Progress Note Date: 06/08/20 Principal diagnosis: Acute coronary syndrome This is a pleasant 39-year-old gentleman with history of smoking and hypertension and dyslipidemia presented to the emergency department with a chest discomfort. He underwent an emergent heart catheterization and was found to have critical disease involving the LCx. He underwent successful stenting of the LCx with an excellent angiographic results. The patient was seen today June [id number]. He remains asymptomatic from a perivascular standpoint of view. He remains he was directly stable as well with marginally low heart rate being in the 50s. Yesterday I did decrease the dose of metoprolol to 12.5 mg by mouth twice a day. He is on dual antiplatelet therapy along with high intensity statin. From the cardiovascular standpoint of view, the patient can be discharged home. He was informed about the importance of taking dual antiplatelet therapy. Objective - Vital Signs Vital signs: Vital Signs Temp 98.4 F 06/08/20 04:00 Pulse 53 L 06/08/20 04:00 Resp 18 06/08/20 04:00 BP 131/64 06/08/20 04:00 Pulse Ox 100 06/08/20 04:00 Intake & Output 06/07/20 06/08/20 06/08/20 18:59 06:59 18:59 Intake Total 640 10 Output Total 1200 Balance -560 10 Weight 104.5 kg Intake: IV 10 0.9 10 Oral 640 Output: Urine 1200 Other: Voiding Method Urinal Toilet Urinal # Voids 1 1 - Constitutional General appearance: Present: no acute distress - Respiratory Respiratory: bilateral: CTA - Cardiovascular Rhythm: regular Heart sounds: normal: S1, S2 - Labs CBC & Chem 7: 06/07/20 04:40 06/07/20 04:40 Assessment and Plan Assessment: Assessment #1 acute coronary syndrome #2 CAD and status post a stenting of the LCx #3 significant history of smoking #4 hypertension #5 dyslipidemia Plan #1 continue the current medical regimen including dual antiplatelet therapy and high intensity statin #2 the patient a can be discharged home
[2020-06-08] MEDS: METOPROLOL TARTRATE 12.5 MG TAB PO SCH (08:56)
[2020-06-08] MEDS: lisinopriL 5 MG TAB PO SCH (08:56)
[2020-06-08] MEDS: ASPIRIN 81 MG PO SCH (08:56)
[2020-06-08] MEDS: PRASUGREL 10 MG TAB PO SCH (08:57)
[2020-06-08 12:18] VITALS: BP 146/78; PULSE 55; TEMP 98.5
--- NOTE | 2020-06-08 18:19 | P.DS ---
Providers Date of admission: 06/05/20 18:04 Expected date of discharge: 06/08/20 Attending physician: Colby Estrella Consults: 06/05/20 18:04 Consult Physician Stat Consulting Provider: Marty Landeros Consult Reason/Comments: STEMI Do you want consulting provider notified?: Already Contacted 06/05/20 19:40 Consult Physician Routine Consulting Provider: [facility] Consult Reason/Comments: Post Interventional patient Do you want consulting provider notified?: Already Contacted Primary care physician: Luca Tian [facility] Course: Chief Complaint: Chest pain History of presenting complaint: This is a 39-year-old patient of Dr. Tian. Chronic stable medical conditions include hypertension. for 2 days patient been having sharp pain in the middle of the upper back - off and on. Not related to exertion. Also short of breath. Some nausea. The pain did go up to his throat. Also short of breath. Tired rundown. Symptoms became progressively worse yesterday. Decided to come in. Patient's troponins were positive. Presented with ST elevation in anterior leads. Cardiac catheterization was done by Dr. Mckeon- left circumflex lesion 95% reduced to 0%. Today-doing well. Up and about. Breathing stable. No chest pain. Girlfriend present. Discussed at length with the patient to-. Risk factor modification. Including smoking. Cleared by: Cardiology. Discussion and discharge planning more than 35 minutes Consultation: Dr. Mckeon from cardiology Physical examination: VITAL signs-98.5, 55, 18, 146/78, 98% room air GENERAL: sitting up in bed, awake EYES: Pupils equal. Conjunctiva normal. HEENT: External appearance of nose and ears normal, oral cavity grossly normal. NECK: JVD not raised; masses not palpable. HEART: First and second heart sounds are normal; no edema. LUNGS: Respiratory rate normal; clear to auscultation. ABDOMEN: Soft, nontender, liver spleen not palpable, no masses palpable. PSYCH: Alert and oriented x3; mood and affect normal. INVESTIGATIONS, reviewed in the clinical context: White count and hemoglobin 15.8 potassium 4.2 crit 1.02 Previous testing White count 10.8 hemoglobin 15.8 platelets 214 potassium 4.1 creatinine 1.3 8 repeat 1.09 Troponin I 0.377, 1.4 2.5 LDL [address] elevation in anterior leads-personally reviewed by me Chest x-ray film personally reviewed by me-lung milligan clear 2-D echocardiogram-borderline concentric LVH, EF 60-65% Assessment: -Acute ST elevation anterior wall [place] -Emergent cardiac catheterization with stenting to circumflex -Essential hypertension -Hyperlipidemia -Chronic nicotine dependence patient cigarette smoker -Marijuana use Disposition: Home Patient Condition at Discharge: Stable Plan - Discharge Summary Discharge Rx Participant: No New Discharge Prescriptions: New Aspirin 81 mg PO DAILY #30 chew Prasugrel [Effient] 10 mg PO DAILY #30 tab Atorvastatin [Lipitor] 80 mg PO HS #30 tab Metoprolol Tartrate [Lopressor] 12.5 mg PO BID #60 tab Nitroglycerin Sl Tabs [Nitrostat] 0.4 mg SUBLINGUAL Q5M PRN #25 tab PRN Reason: Chest Pain Lisinopril [Prinivil] 10 mg PO HS #30 tab Discontinued amLODIPine [Norvasc] 5 mg PO DAILY Hydroxycut Weight Loss Supp 1 cap PO DAILY Discharge Medication List Aspirin 81 mg PO DAILY #30 chew 06/08/20 [Rx] Atorvastatin [Lipitor] 80 mg PO HS #30 tab 06/08/20 [Rx] Lisinopril [Prinivil] 10 mg PO HS #30 tab 06/08/20 [Rx] Metoprolol Tartrate [Lopressor] 12.5 mg PO BID #60 tab 06/08/20 [Rx] Nitroglycerin Sl Tabs [Nitrostat] 0.4 mg SUBLINGUAL Q5M PRN #25 tab 06/08/20 [Rx] Prasugrel [Effient] 10 mg PO DAILY #30 tab 06/08/20 [Rx] Follow up Appointment(s)/Referral(s): Marty Landeros MD [STAFF PHYSICIAN] - 1 Week (Follow-up with Dr. Landeros/Marilyn García/Whit Pressley) Luca Tian DO [Primary Care Provider] - 1-2 days Patient Instructions/Handouts: *Surgery [facility] - After Heart Catheterization - Tile Burner Instructions, Heart Attack (DC), After Radial Heart Catheterization (GEN) Activity/Diet/Wound Care/Special Instructions: DO NOT SUBMERGE ARM IN WATER NO HEAVY LIFTING FOR ONE WEEK GENTLY CLEAN AROUND AREA NO VIGOROUS SCRUBBING IS NEEDED Discharge/Stand Alone Forms: Work/School Release / Restrict Discharge Disposition: HOME SELF-CARE
== END 2020-06-08 12:24 | disposition home or self-care (01) | DRG 247 ==
LOC: SUPCPDRO 17:45 → EC 17:45 → 2SICU 18:04 → 3SCARD 06-07 14:33
PROVIDERS: ADMIT Hospitalist; ATTEND Hospitalist
PROC: B2111ZZ Fluoroscopy of Multiple Coronary Arteries using Low Osmolar Contrast (ICD-10-PCS; principal; 2020-06-05 18:30)
PROC: 4A023N7 Measurement of Cardiac Sampling and Pressure, Left Heart, Percutaneous Approach (ICD-10-PCS; principal; 2020-06-05 18:30)
PROC: 027034Z Dilation of Coronary Artery, One Artery with Drug-eluting Intraluminal Device, Percutaneous Approach (ICD-10-PCS; principal; 2020-06-05 18:30)
DX: I21.09 ST elevation (STEMI) myocardial infarction involving other coronary artery of anterior wall (principal); I11.9 Hypertensive heart disease without heart failure; E78.5 Hyperlipidemia, unspecified; F17.210 Nicotine dependence, cigarettes, uncomplicated; I25.10 Atherosclerotic heart disease of native coronary artery without angina pectoris; F17.290 Nicotine dependence, other tobacco product, uncomplicated; Z79.82 Long term (current) use of aspirin; Z79.899 Other long term (current) drug therapy; Z91.14 Patient's other noncompliance with medication regimen; Z71.6 Tobacco abuse counseling; Z82.3 Family history of stroke; Z82.49 Family history of ischemic heart disease and other diseases of the circulatory system
CPT/HCPCS: 71045; 80048; 80053; 80061; 82550; 82553; 83735; 84484; 85025; 85347; 85610; 85730; 93005; 93306; 93458; 96365; 96375; 99291